=== PATIENT | female | born 1985 | race Two or more races ===

== ENCOUNTER 2024-08-01 07:00 | Day surgery (SDC) | payer MEDICAID, SELFPAY ==
[2024-07-31 13:06] LABS: HCG Qualitative,Urine Negative
[2024-07-31 14:18] VITALS: BMI 20.1
[2024-08-01] VITALS (9 sets, daily range): BP systolic 94–111; BP diastolic 46–91; PULSE 51–78; RESP 12–20; TEMP 36.8–37; O2SAT 99–100; BMI 20.3
[2024-08-01] MEDS: SODIUM CHLORIDE 0.9% 500 ML 500 ML 100 ML IV (08:01)
[2024-08-01] MEDS: fentaNYL CIT INJ 50 mCg/ML AMP 2ML (ASD USE ONLY) IVP (08:01)
[2024-08-01] MEDS: MIDAZOLAM INJ 1 MG/ML VIAL 2 ML (ASD USE ONLY) 2 MG IVP (08:01)
[2024-08-01] MEDS: DiphenhydrAMINE INJ 50 MG/ML VIAL 25 MG IVP (08:02)
== END 2024-08-01 09:30 | disposition home or self-care (01) ==
PROVIDERS: PCP Family Medicine; Referring Provider Surgery; Visit Provider Surgery
PROC: 0DBE8ZX Excision of Large Intestine, Via Natural or Artificial Opening Endoscopic, Diagnostic (ICD-10-PCS; CPT 45380; principal; 2024-08-01 08:00)
DX: K64.2 Third degree hemorrhoids (principal); K64.4 Residual hemorrhoidal skin tags
CPT/HCPCS: 45378; 81025; J1200; J2250; J3010; J7040